=== PATIENT | male | born 1995 | race African-American/Black ===

== ENCOUNTER 2024-07-11 03:49 | Inpatient (IN) | payer OTHER ==
[~2024-07-11] VITALS: Ht 175.3 cm; Wt 71.1 kg
[2024-07-11 04:45] LABS: COVID AG,FIA SOURCE NASAL SWAB
[2024-07-11 04:45] LABS: BASOPHILS % (AUTO) 0.4 % (0.0-2.0); EOSINOPHILS % (AUTO) 1.3 % (1.0-6.0); HEMATOCRIT 45.9 % (41-53); HEMOGLOBIN 15.5 g/dL (13.5-17.5); LYMPHOCYTES # (AUTO) 1.2 K/uL (1.0-4.8); MEAN CORPUSCULAR HEMOGLOBIN 29.7 pg (26.0-34.0); MEAN CORPUSCULAR HGB CONC 33.7 G/dL (31.0-37.0); MEAN CORPUSCULAR VOLUME 88 fL (80-100); MONOCYTES # (AUTO) 0.6 K/uL (0.1-1.0); MONOCYTES % (AUTO) 11.1 % (2.0-9.0); NEUTROPHILS # (AUTO) 3.6 K/uL (1.8-7.7); NEUTROPHILS % (AUTO) 65.2 % (40.0-70.0); PLATELET COUNT (AUTO) 266 K/uL (150-450); RED BLOOD CELL COUNT(AUTO) 5.21 MIL/uL (4.50-5.90); RED CELL DISTRIBUTION WIDTH 14.4 % (11.5-14.5); WHITE BLOOD COUNT (AUTO) 5.6 K/uL (4.5-11.0)
[2024-07-11 04:48] LABS: APPEARANCE,URINE CLEAR (CLEAR); BILIRUBIN,URINE NEGATIVE (NEGATIVE); COLOR,URINE LIGHT YELLOW (YELLOW); GLUCOSE, URINE (UA) NEGATIVE (NEGATIVE); LEUKOCYTE ESTERASE ,URINE NEGATIVE (NEGATIVE); NITRATE,URINE NEGATIVE (NEGATIVE); OCCULT BLOOD,URINE NEGATIVE (NEGATIVE); PH,URINE 6.5 (5.0-8.0); PH,URINE DRUG SCREEN 6.5 (5.0-8.0); PROTEIN,URINE TRACE mg/dL (NEGATIVE); UROBILINOGEN,URINE <=1.0 mg/dL (<=1.0)
[2024-07-11 04:56] LABS: ANION GAP 7 mmol/L (8-16); CALCIUM, TOTAL 9.1 mg/dL (8.8-10.5); CARBON DIOXIDE 32 mmol/L (22-29); CHLORIDE 99 mmol/L (98-107); CREATININE 1.41 mg/dL (0.60-1.30); GLOMERULAR FILTR. RATE CALC > 60 mL/min (>60); GLUCOSE,RANDOM 100 mg/dL (70-110); POTASSIUM 3.9 mmol/L (3.5-5.1); SODIUM SERUM 138 mmol/L (136-145); UREA NITROGEN, BLOOD 10 mg/dL (7-18)
[2024-07-11 05:04] LABS: ALCOHOL, BLOOD (SERUM) < 3 mg/dL (0-10)
[2024-07-11 05:04] LABS: SARS-COV2 (COVID) ANTIGEN,FIA Negative (Negative)
[2024-07-11 05:15] LABS: ALCOHOL, URINE DRUG SCREEN NEGATIVE (NEGATIVE); AMPHET/METH SCREEN,URINE POSITIVE (NEGATIVE); BARBITURATE SCREEN, URINE NEGATIVE (NEGATIVE); BENZODIAZEPINES SCREEN,URINE NEGATIVE (NEGATIVE); CANNABINOID SCREEN,URINE POSITIVE (NEGATIVE); COCAINE SCREEN,URINE NEGATIVE (NEGATIVE); METHADONE SCREEN, URINE NEGATIVE (NEGATIVE); OPIATE SCREEN,URINE NEGATIVE (NEGATIVE); PHENCYCLIDINE SCREEN,URINE NEGATIVE (NEGATIVE)
[2024-07-11] MEDS: DiphenhydrAMINE HCL 50 MG/ML VIAL IM ONE (07:12)
[2024-07-11] MEDS: HALOPERIDOL LACTATE 5 MG/ML VIAL IM ONE (07:12)
[2024-07-11] MEDS: LORazepam 2 MG/ML VIAL IM ONE (07:12)
[2024-07-11] MEDS ORDERED: HydrOXYzine PAMOATE 50 MG CAPSULE PO PRN (10:45)
[2024-07-11] MEDS ORDERED: LORazepam 2 MG TABLET PO PRN (10:45)
[2024-07-11] MEDS ORDERED: GuaiFENesin/D-METHORPHAN [SUGAR-FREE] 200-20MG/10 ML SYRUP UDCUP PO PRN (10:45)
[2024-07-11] MEDS: DEXTROMETHORPHAN HBR/QUINIDINE 20/10 MG CAPSULE PO ONE (10:45)
[2024-07-11] MEDS ORDERED: ZOLPIDEM TARTRATE 10 MG TABLET PO PRN (10:45)
[2024-07-11] MEDS ORDERED: PROMETHAZINE HCL 25 MG TABLET PO PRN (10:45)
[2024-07-11] MEDS ORDERED: TUBERCULIN, PURIFIED PROTEIN DERIVATIVE 5 TU/0.1 ML SYRINGE ID ONE (10:45)
[2024-07-11] MEDS ORDERED: LOPERAMIDE HCL 2 MG CAPSULE PO PRN (10:45)
[2024-07-11] MEDS ORDERED: ACETAMINOPHEN 325 MG TABLET PO PRN (10:45)
[2024-07-11] MEDS ORDERED: MAGNESIUM HYDROXIDE SUSPENSION 30 ML UDCUP PO PRN (10:45)
[2024-07-11] MEDS ORDERED: MAG HYDROX/ALUMINUM HYD/SIMETH ES 30 ML SUSPENSION UDCUP PO PRN (10:45)
[2024-07-11] MEDS ORDERED: QUEtiapine FUMARATE 100 MG TABLET PO PRN (10:45)
[2024-07-11 21:35] VITALS: BP 129/79; PULSE 105; RESP 18; TEMP 97; O2SAT 100
[2024-07-11] MEDS: THIAMINE 100 MG TABLET PO SCH (22:00)
[2024-07-11] MEDS: MELATONIN 5 MG TABLET PO SCH (22:01)
[2024-07-11 22:35] VITALS: BP 137/71; PULSE 90; RESP 18; TEMP 97.9; O2SAT 100
[2024-07-11 22:51] VITALS: BP 137/71; PULSE 90; RESP 18; TEMP 97.9; O2SAT 100
[2024-07-11 23:51] VITALS: BP 125/74; PULSE 88; RESP 16; TEMP 97.6; O2SAT 100
[2024-07-12] VITALS (9 sets, daily range): BP systolic 111–140; BP diastolic 60–89; PULSE 78–105; RESP 16–18; TEMP 97–98.3; O2SAT 98–100
[2024-07-12 09:02] LABS: HEMOGLOBIN A1C 5.5 % (3.8-5.6)
[2024-07-12 09:18] LABS: ANION GAP 6 mmol/L (8-16); CALCIUM, TOTAL 9.1 mg/dL (8.8-10.5); CARBON DIOXIDE 31 mmol/L (22-29); CHLORIDE 99 mmol/L (98-107); CHOL/HDL RATIO 2.7 (4.2-7.3); CHOLESTEROL 167 mg/dL (131-200); CREATININE 1.44 mg/dL (0.60-1.30); FREE T4 (FREE THYROXINE) 0.89 ng/dL (0.76-1.46); GLOMERULAR FILTR. RATE CALC > 60 mL/min (>60); GLUCOSE,RANDOM 72 mg/dL (70-110); HDL CHOLESTEROL 62 mg/dL (40-60); LDL CHOL (CALC.) 96 mg/dL (0-130); POTASSIUM 4.4 mmol/L (3.5-5.1); SODIUM SERUM 136 mmol/L (136-145); THYROID STIMULATING HORMONE 0.94 uIU/mL (0.36-3.74); TRIGLYCERIDES 45 mg/dL (15-150); UREA NITROGEN, BLOOD 15 mg/dL (7-18)
[2024-07-12] MEDS: FOLIC ACID 1 MG TABLET PO SCH (10:19)
[2024-07-12] MEDS: FLUoxetine HCL 20 MG CAPSULE PO SCH (10:19)
[2024-07-12] MEDS: MULTIVITAMINS WITH MINERALS, THERAPEUTIC TABLET PO SCH (10:19)
[2024-07-12] MEDS: NALTREXONE HCL 50 MG TABLET PO SCH (10:19)
[2024-07-12] MEDS: OMEGA-3/DHA/EPA/FISH OIL 1,000 MG CAPSULE PO SCH (10:19)
[2024-07-12] MEDS: NICOTINE 21 MG/24 HOUR PATCH TD SCH (10:21)
[2024-07-12] MEDS ORDERED: OLANZapine 5 MG RAPDIS TABLET PO PRN (14:15)
[2024-07-12] MEDS ORDERED: NALT50TA33 PO (14:16)
[2024-07-12] MEDS ORDERED: OLAN5TAB94 PO (14:16)
[2024-07-12] MEDS: OLANZapine 5 MG RAPDIS TABLET PO SCH (21:54)
[2024-07-13 02:06] LABS: HEPATITIS A ANTIBODY IGM Negative (Negative); HEPATITIS B CORE IGM Negative (Negative); HEPATITIS C AB (EIA) Non Reactive (Non Reactive)
[2024-07-13 10:03] VITALS: BP 129/96; PULSE 84; RESP 16; TEMP 97.6; O2SAT 100
== END 2024-07-13 09:33 | disposition home or self-care (01) | DRG 885 ==
LOC: EMS 03:52 → B3A 18:49
PROVIDERS: ADMIT Psychiatry & Neurology Psychiatry; ATTEND Psychiatry & Neurology Psychiatry
PROC: GZHZZZZ Group Psychotherapy (ICD-10-PCS; principal; 2024-07-12)
PROC: GZ58ZZZ Individual Psychotherapy, Cognitive-Behavioral (ICD-10-PCS; 2024-07-12)
DX: F33.3 Major depressive disorder, recurrent, severe with psychotic symptoms (principal); R45.851 Suicidal ideations; G93.40 Encephalopathy, unspecified; Z20.822 Contact with and (suspected) exposure to COVID-19; F15.90 Other stimulant use, unspecified, uncomplicated; Z91.51 Personal history of suicidal behavior; F41.9 Anxiety disorder, unspecified
CPT/HCPCS: 80048; 80061; 80074; 80307; 81003; 83036; 84439; 84443; 85025; 86592; G0480; J1200; J1630; J2060